=== PATIENT | male | born 1990 | race Caucasian/White ===

== ENCOUNTER 2019-03-10 12:17 | Emergency (ER) | payer OTHER ==
[2019-03-10 12:23] VITALS: BP 139/102
[2019-03-10] MEDS ORDERED: PROPARACAINE 0.5% 15 ML OPHT DROP OP ONE (12:23)
[2019-03-10] MEDS ORDERED: FLUORESCEIN SODIUM 1 MG STRIP OP ONE (12:23)
--- NOTE | 2019-03-10 12:35 | EDPHY ---
H & P Time Seen by Provider: 03/10/19 12:22 HPI/ROS: CHIEF COMPLAINT: Right eye pain HISTORY OF PRESENT ILLNESS: 28-year-old homeless male via ambulance complaining of right eye pain after he accidentally poked his right eye last evening when his hand slipped when he was closing a stuck zipper. Denies exposure to high speed projectiles. Tetanus is up-to-date. Positive photophobia. Denies assault. PRIMARY CARE PROVIDER: REVIEW OF SYSTEMS: 10 systems reviewed and negative with the exception of the elements mentioned in the history of present illness PAST MEDICAL & SURGICAL HISTORY: No pertinent medical or surgical history SOCIAL HISTORY: Homeless PHYSICAL EXAM (Prior to examination, patient consented to physical exam, hands were washed and my usual and customary physical exam procedures followed) 1) GENERAL: Well-developed, well-nourished, alert and oriented. Appears uncomfortable 2) HEAD: Normocephalic, atraumatic 3) OCULAR EXAM: Visual Acuity: noted from Nurse's notes. Pupils:equal round and reactive to light EOMI Lids: no edema or swelling, upper and lower lids were everted and no foreign bodies were visualized, no areas of increased fluorescein uptake. Skin: no proptosis, no periorbital erythema or swelling, no vesicles, no pain with extraocular movements. Conjunctivae: not injected, no discharge, negative Zoila test. Cornea: exam with fluorescein shows area between 2:00 a.m. and 3:00 a.m. consistent with corneal abrasion of the right eye. Anterior chamber:normal, no hyphema or hypopyon 4) NECK: Full range of motion, no meningeal signs. 5) LUNGS: Clear auscultation bilaterally, no wheezes, no rhonchi, no retractions. 6) HEART: Regular rate and rhythm, no murmur, no heave, no gallop. 7) ABDOMEN: No guarding, no rebound, no focal tenderness, 8) MUSCULOSKELETAL: Moving all extremities, no focal areas of tenderness, no obvious trauma. No peripheral edema or discoloration. 9) BACK: No obvious trauma, no visual or palpable abnormality. 10) SKIN: No rash, no petechiae. 11) Psychiatric: Patient is oriented X 3, there is no agitation. DIFFERENTIAL DIAGNOSIS: In no particular include but limited to globe rupture , corneal abrasion, conjunctivitis Smoking Status: Never smoked Constitutional: Initial Vital Signs Temperature (C) 36.8 C 03/10/19 12:21 Heart Rate 99 03/10/19 12:21 Respiratory Rate 16 03/10/19 12:21 Blood Pressure 139/102 H 03/10/19 12:21 O2 Sat (%) 97 03/10/19 12:21 O2 Delivery Mode Room Air Allergies/Adverse Reactions: Penicillins Allergy (Verified 03/10/19 12:21) Home Medications: Medication Instructions Recorded NK [No Known Home Meds] 03/10/19 MDM/Departure - MDM Medications Given: Discontinued Medications Fluorescein Sodium (Bioglo) 1 mg OP EDNOW ONE Stop: 03/10/19 12:24 Last Admin: 03/10/19 12:36 Dose: 1 mg Proparacaine HCl (Alcaine 0.5%) 1 drops OP EDNOW ONE Stop: 03/10/19 12:24 Last Admin: 03/10/19 12:35 Dose: 1 drops ED Course/Re-evaluation: Patient has evidence of right corneal abrasion. He has been given analgesia and ophthalmic antibiotic in the emergency department as he does not have money to buy these. Recommend close follow up with Ophthalmology. He feels comfortable being discharged. No evidence of globe rupture. Patient feels comfortable being discharged. All questions and concerns addressed by myself. Patient given my usual and customary discharge precautions and instructions regarding their clinical impression. Care of patient under supervision of secondary supervising physician Dr Cardenas . - Depart Disposition: Home, Routine, Self-Care Clinical Impression: Right corneal abrasion Qualifiers: Encounter type: initial encounter Qualified Code(s): S05.01XA - Injury of conjunctiva and corneal abrasion without foreign body, right eye, initial encounter Condition: Good Instructions: Corneal Abrasion (ED), Ofloxacin (Into the eye), Hydrocodone/ Acetaminophen (By mouth) Referrals: Jerald Harley MD [Medical Doctor] - 1-2 days without fail
[2019-03-10] MEDS ORDERED: HYDROCOD/APAP 5/325 PREPACK#6 BTL TAKEHOME ONE (12:45)
[2019-03-10] MEDS ORDERED: OFLOXACIN 0.3% SOLN PREPACK OPHT.BTL TAKEHOME ONE (12:45)
== END 2019-03-10 12:59 | disposition home or self-care (01) ==
DX: S05.01XA Injury of conjunctiva and corneal abrasion without foreign body, right eye, initial encounter (principal); Z59.0 Homelessness; W22.8XXA Striking against or struck by other objects, initial encounter